=== PATIENT | male | born 2000 | race African-American/Black ===

== ENCOUNTER 2023-11-19 01:59 | Inpatient (IN) | payer SELFPAY ==
[~2023-11-19] VITALS: Ht 182.9 cm; Wt 72.6 kg
[2023-11-19] MEDS: SODIUM CHLORIDE 0.9% 1,000 ML IV ONE (02:53)
[2023-11-19 03:14] LABS: BASOPHILS % 0.4 % (0.0-2.0); EOSINOPHILS % 0.4 % (0.0-5.0); HEMATOCRIT. 39.1 % (42.0-52.0); HEMOGLOBIN. 12.8 g/dL (14.0-18.0); LYMPHOCYTES % 11.7 % (20.0-50.0); MEAN CORPUSCULAR HEMOGLOBIN 30.8 pg (28.0-32.0); MEAN CORPUSCULAR HGB CONC 32.7 g/dL (31.0-37.0); MEAN CORPUSCULAR VOLUME 93.9 fL (80.0-94.0); MONOCYTES % 9.1 % (2.0-8.0); NEUTROPHILS % 78.4 % (40.0-76.0); PLATELET 230 x1000/uL (130-400); RED BLOOD CELL COUNT 4.17 mill/uL (4.7-6.1); RED CELL DISTRIBUTION WIDTH 15.4 % (11.6-14.6); WHITE BLOOD COUNT 8.6 x1000/uL (4.5-11.0)
[2023-11-19 03:20] LABS: CARBON DIOXIDE 28 mEq/L (21-32); CHLORIDE 104 mEq/L (98-107); POTASSIUM 3.8 mEq/L (3.5-5.1); SODIUM 138 mEq/L (136-145)
[2023-11-19 03:21] LABS: CALCIUM 9.4 mg/dL (8.7-10.4)
[2023-11-19 03:25] LABS: CREATININE 1.3 mg/dL (0.6-1.3)
[2023-11-19 03:26] LABS: GLUCOSE 73 mg/dL (70-105); UREA NITROGEN BLOOD 16 mg/dL (9-23)
[2023-11-19 03:27] LABS: ALANINE AMINOTRANSFERASE 31 IU/L (10-49)
[2023-11-19 03:28] LABS: ACETAMINOPHEN < 2 ug/mL (10-30); ALBUMIN 4.3 g/dL (3.2-4.8); ASPARTATE AMINOTRANSFERASE 56 IU/L (<34); BILIRUBIN DIRECT 0.6 mg/dL (<=3.0); BILIRUBIN TOTAL 1.7 mg/dL (0.1-1.0); CREATINE KINASE 1208 IU/L (46-171); PROTEIN TOTAL 6.5 g/dL (6.0-8.3)
[2023-11-19 03:47] LABS: ETHANOL BLOOD < 10 mg/dL (<10)
[2023-11-19] MEDS ORDERED: SODIUM CHLORIDE 0.9% 1,000 ML IV NR (04:00)
[2023-11-19] MEDS ORDERED: IPRATROPIUM/ALBUTEROL 0.5-3(2.5)MG/3ML NEB HHN PRN (04:45)
[2023-11-19] MEDS ORDERED: HYDROCODONE/ACETAMINOPHEN 5/325MG TABLET PO PRN (04:45)
[2023-11-19] MEDS ORDERED: MAGNESIUM/ALUMINUM HYDROXIDE/SIMETHICONE 30ML UDC PO PRN (04:45)
[2023-11-19] MEDS ORDERED: CLONIDINE 0.1MG TABLET PO PRN (04:45)
[2023-11-19] MEDS ORDERED: GUAIFENESIN 200MG/10ML SUGAR FREE UDC PO PRN (04:45)
[2023-11-19] MEDS ORDERED: DOCUSATE SODIUM 100MG CAPSULE PO PRN (04:45)
[2023-11-19] MEDS ORDERED: ACETAMINOPHEN 325MG TABLET PO PRN ×2 (04:45)
[2023-11-19] MEDS ORDERED: ONDANSETRON HCL 4MG/2ML INJ IV PRN (04:45)
[2023-11-19 04:51] LABS: *AMPHETAMINES SCREEN URINE NEGATIVE (NEGATIVE); *BARBITURATES SCREEN URINE NEGATIVE (NEGATIVE); *BENZODIAZEPINES SCREEN URINE NEGATIVE (NEGATIVE); *COCAINE SCREEN URINE NEGATIVE (NEGATIVE); CANNABINOID URINE SCREEN NEGATIVE (NEGATIVE); CLARITY URINE CLEAR (CLEAR); COLOR URINE YELLOW (YELLOW); ECSTASY MDMA SCREEN URINE NEGATIVE (NEGATIVE); METHADONE URINE SCREEN NEGATIVE (NEGATIVE); OPIATES URINE SCREEN NEGATIVE (NEGATIVE); PHENCYCLIDINE URINE SCREEN NEGATIVE (NEGATIVE); SPECIFIC GRAVITY URINE 1.024 (1.005-1.030)
[2023-11-19 04:52] LABS: GLUCOSE URINE NEGATIVE (NEGATIVE); KETONES URINE 1+ (NEGATIVE); PH URINE 5.5 (4.5-8.0); PROTEIN URINE NEGATIVE (NEGATIVE)
[2023-11-19 04:53] LABS: LEUKOCYTE ESTERASE URINE NEGATIVE (NEGATIVE); NITRITE URINE NEGATIVE (NEGATIVE); OCCULT BLOOD URINE NEGATIVE (NEGATIVE); UROBILINOGEN URINE 0.2 E.U./dL (0.2-1.0)
[2023-11-19] MEDS ORDERED: NALOXONE HCL 0.4MG/ML VIAL IV PRN (05:00)
[2023-11-19] MEDS: SODIUM CHLORIDE 0.45% 1,000 ML IV SCH (05:25)
[2023-11-19 05:34] LABS: IRON 66 ug/dL (65-175)
[2023-11-19 05:35] LABS: TROPONIN I HIGH SENSITIVITY 8 ng/L (3.0-53)
[2023-11-19 05:37] LABS: CREATINE KINASE 998 IU/L (46-171); PHOSPHORUS 4.7 mg/dL (2.5-4.9); TOTAL IRON BINDING CAPACITY 163 ug/dl (250-425)
[2023-11-19 05:40] LABS: FOLIC ACID (FOLATE) SERUM 14.05 ng/mL (>5.38); VITAMIN B12 SERUM 454 pg/mL (211-911)
[2023-11-19] MEDS: ENOXAPARIN 40MG/0.4ML SYR SUBCUT SCH (09:00)
[2023-11-19] MEDS: THIAMINE HCL 100MG TABLET PO SCH (11:46)
[2023-11-19] MEDS: FOLIC ACID 1MG TABLET PO SCH (11:47)
[2023-11-19 12:00] VITALS: BP 95/57; PULSE 57; RESP 18; TEMP 36.61404; O2SAT 100
[2023-11-19 14:20] VITALS: BP 95/57; PULSE 57; RESP 16; TEMP 36.5848
[2023-11-19 14:34] VITALS: BP 110/57; TEMP 36.61404
[2023-11-19 16:00] VITALS: BP 100/64; PULSE 62; RESP 18; TEMP 36.6696; O2SAT 100
[2023-11-19 17:02] LABS: TROPONIN I HIGH SENSITIVITY 7 ng/L (3.0-53)
[2023-11-19 17:03] LABS: CREATINE KINASE 606 IU/L (46-171)
[2023-11-19 22:38] VITALS: BP 99/60; PULSE 88; RESP 18; TEMP 36.22512; O2SAT 95
[2023-11-20] VITALS: BP 98/62; PULSE 78; RESP 19; TEMP 36.28068; O2SAT 100
[2023-11-20 08:00] VITALS: BP 95/60; PULSE 46; RESP 16; TEMP 36.61404; O2SAT 100
[2023-11-20 08:01] LABS: CALCIUM 9.2 mg/dL (8.7-10.4); CARBON DIOXIDE 30 mEq/L (21-32); CHLORIDE 106 mEq/L (98-107); SODIUM 140 mEq/L (136-145)
[2023-11-20 08:06] LABS: CREATININE 1.1 mg/dL (0.6-1.3); GLUCOSE 76 mg/dL (70-105); TRIGLYCERIDE 41 mg/dL (0-150)
[2023-11-20 08:07] LABS: LDL CHOLESTEROL 39 mg/dL (5-100); UREA NITROGEN BLOOD 13 mg/dL (9-23)
[2023-11-20 08:08] LABS: BASOPHILS % 0.1 % (0.0-2.0); CHOLESTEROL 122 mg/dL (<200); CREATINE KINASE 428 IU/L (46-171); EOSINOPHILS % 0.8 % (0.0-5.0); HDL CHOLESTEROL 63 mg/dL (>55); HEMATOCRIT. 41.2 % (42.0-52.0); HEMOGLOBIN. 13.7 g/dL (14.0-18.0); LYMPHOCYTES % 18.5 % (20.0-50.0); MEAN CORPUSCULAR HEMOGLOBIN 31.4 pg (28.0-32.0); MEAN CORPUSCULAR HGB CONC 33.3 g/dL (31.0-37.0); MEAN CORPUSCULAR VOLUME 94.3 fL (80.0-94.0); MEAN PLATELET VOLUME 8.3 fl (7.4-10.4); MONOCYTES % 6.7 % (2.0-8.0); NEUTROPHILS % 73.9 % (40.0-76.0); PLATELET 241 x1000/uL (130-400); RED BLOOD CELL COUNT 4.37 mill/uL (4.7-6.1); RED CELL DISTRIBUTION WIDTH 15.5 % (11.6-14.6); WHITE BLOOD COUNT 4.3 x1000/uL (4.5-11.0)
[2023-11-20 08:09] LABS: T4 FREE 1.12 ng/dL (0.89-1.76); THYROID STIMULATING HORMONE 0.54 uIU/mL (0.55-4.78)
[2023-11-20 12:00] VITALS: BP 106/63; PULSE 55; RESP 17; TEMP 36.9474; TEMP 36.94740; O2SAT 100
[2023-11-20 14:08] VITALS: BP 106/63; PULSE 56; TEMP 98.5; O2SAT 100
== END 2023-11-20 14:40 | disposition home or self-care (01) | DRG 422 ==
LOC: ER 01:59 → 6EST 04:29 → EDBEDREQ 04:40 → EDBEDREQTM 04:40 → EDBEDREQSVC 08:08
PROVIDERS: ADMIT Internal Medicine; ATTEND Internal Medicine
DX: E86.0 Dehydration (principal); N17.9 Acute kidney failure, unspecified; M62.82 Rhabdomyolysis; D64.9 Anemia, unspecified; Z20.822 Contact with and (suspected) exposure to COVID-19; M54.2 Cervicalgia; F32.A Depression, unspecified; F39 Unspecified mood [affective] disorder; S30.820A Blister (nonthermal) of lower back and pelvis, initial encounter; X58.XXXA Exposure to other specified factors, initial encounter; Y93.89 Activity, other specified; Y92.89 Other specified places as the place of occurrence of the external cause; Y99.8 Other external cause status; Z59.00 Homelessness unspecified
CPT/HCPCS: 36415; 80048; 80061; 80076; 80305; 80307; 80320; 80329; 81003; 82550; 82607; 82746; 83540; 83550; 83735; 84100; 84439; 84443; 84484; 85025; 87426; 99285; J1650; J7030; G0480